=== PATIENT | female | born 1955 | race Caucasian/White ===

== ENCOUNTER → 2017-10-15 | Outpatient (CLI) | payer OTHER ==
--- NOTE | 2017-10-17 08:01 | MM ---
Reason for exam: screening (asymptomatic). Last mammogram was performed 1 year and 9 months ago. History: Patient is postmenopausal and has history of breast cancer at age 49. Family history of breast cancer in paternal grandmother at age 80. Implant in the left breast, 2007. Mastectomy of the left breast, November 27, 2006. Reduction of the right breast, 2006. Chemotherapy, 2006. Took antineoplastic for 5 years beginning at age 49. Physical Findings: A clinical breast exam by your physician is recommended on an annual basis and results should be correlated with mammographic findings. MG Screen Janina Unilateral W/Cad Bilateral CC and MLO view(s) were taken. Prior study comparison: January 27, 2016, right breast MG diagnostic mammo RT w CAD. January 25, 2015, right breast MG diagnostic mammo RT w CAD. There are scattered fibroglandular densities. No significant changes when compared with prior studies. ASSESSMENT: Negative, BI-RAD 1 RECOMMENDATION: Routine screening mammogram of the right breast in 1 year.
== END | disposition home or self-care (01) ==
LOC: RADMAMWWP 09:04
PROVIDERS: ATTEND Family Medicine
DX: Z12.31 Encounter for screening mammogram for malignant neoplasm of breast (principal)
CPT/HCPCS: 77067

== ENCOUNTER → 2018-11-14 | Outpatient (CLI) | payer OTHER ==
--- NOTE | 2018-11-18 14:17 | MM ---
Reason for exam: screening (asymptomatic). Last mammogram was performed 1 year and 1 month ago. History: Patient is postmenopausal and has history of breast cancer at age 49. Family history of breast cancer in paternal grandmother at age 80. Implant in the left breast, 2007. Mastectomy of the left breast, November 27, 2006. Reduction of the right breast, 2006. Chemotherapy, 2006. Took antineoplastic for 5 years beginning at age 49. Physical Findings: A clinical breast exam by your physician is recommended on an annual basis and results should be correlated with mammographic findings. MG Screen Janina Unilateral W/Cad Bilateral CC and MLO view(s) were taken. Prior study comparison: October 15, 2017, bilateral MG screen janina unilateral w/cad. January 27, 2016, right breast MG diagnostic mammo RT w CAD. The breast tissue is heterogeneously dense. This may lower the sensitivity of mammography. Benign appearing calcifictions in the right breast. ASSESSMENT: Benign, BI-RAD 2 RECOMMENDATION: Routine screening mammogram of the right breast in 1 year.
== END | disposition home or self-care (01) ==
LOC: RADMAMWWP 13:20
PROVIDERS: ATTEND Family Medicine
DX: Z12.31 Encounter for screening mammogram for malignant neoplasm of breast (principal)
CPT/HCPCS: 77067

== ENCOUNTER → 2020-08-10 | Outpatient (CLI) | payer OTHER ==
--- NOTE | 2020-08-12 11:13 | MM ---
Reason for exam: screening (asymptomatic). Last mammogram was performed 1 year and 9 months ago. History: Patient is postmenopausal and has history of breast cancer at age 49. Family history of breast cancer in paternal grandmother at age 80. Implant in the left breast, 2007. Mastectomy of the left breast, November 27, 2006. Reduction of the right breast, 2006. Chemotherapy, 2006. Took antineoplastic for 5 years beginning at age 49. Physical Findings: A clinical breast exam by your physician is recommended on an annual basis and results should be correlated with mammographic findings. MG Screen Janina Unilateral W/Cad CC and MLO view(s) were taken of the right breast. Prior study comparison: November 14, 2018, bilateral MG screen janina unilateral w/cad. October 15, 2017, bilateral MG screen janina unilateral w/cad. The breast tissue is heterogeneously dense. This may lower the sensitivity of mammography. Stable benign calcifications. There is no discrete abnormality. No significant changes when compared with prior studies. ASSESSMENT: Benign, BI-RAD 2 RECOMMENDATION: Routine screening mammogram of the right breast.
== END | disposition home or self-care (01) ==
LOC: RADMAMWWP 07:01
PROVIDERS: ATTEND Internal Medicine
DX: Z12.31 Encounter for screening mammogram for malignant neoplasm of breast (principal)
CPT/HCPCS: 77067

== ENCOUNTER 2024-05-21 14:28 | Emergency (ER) | payer MEDICARE, OTHER ==
--- NOTE | 2024-05-21 15:31 | ED ---
Upper Extremity HPI - General Chief Complaint: Extremity Injury, Upper Stated Complaint: Fall-L hand injury Time Seen by Provider: 05/21/24 14:40 Source: patient, RN notes reviewed Mode of arrival: ambulatory Limitations: no limitations - History of Present Illness Initial Comments: Is a 68-year-old female presenting to the emergency department for chief complaint of a fall. Patient states that approximately 12:00 she was helping her grandson off the bus when she was accidentally tripped and fell onto her outstretched left hand/wrist. Patient denies hitting her head or loss conscious the time of the injury. She denies other injuries at the time of the event. - Related Data Allergies Allergy/AdvReac Type Severity Reaction Status Date / Time No Known Allergies Allergy Verified 05/21/24 14:41 Review of Systems ROS Statement: Those systems with pertinent positive or pertinent negative responses have been documented in the HPI. ROS Other: All systems not noted in ROS Statement are negative. Past Medical History Past Medical History: Diabetes Mellitus, Hyperlipidemia, Hypertension, Thyroid Disorder Past Surgical History: Cholecystectomy, Joint Replacement, Orthopedic Surgery Additional Past Surgical History / Comment(s): mastectomy Smoking Status: Former smoker General Exam Limitations: no limitations General appearance: alert, in no apparent distress Eye exam: Present: normal appearance, PERRL, EOMI. Absent: scleral icterus, conjunctival injection, periorbital swelling Neck exam: Present: normal inspection. Absent: tenderness, meningismus, lymphadenopathy Respiratory exam: Present: normal lung sounds bilaterally. Absent: respiratory distress, wheezes, rales, rhonchi, stridor Cardiovascular Exam: Present: regular rate, normal rhythm, normal heart sounds. Absent: systolic murmur, diastolic murmur, rubs, gallop, clicks GI/Abdominal exam: Present: soft, normal bowel sounds. Absent: distended, tenderness, guarding, rebound, rigid Left Hand Wrist exam: Present: tenderness, swelling, ecchymosis. Absent: full ROM, deformity, crepitus Neuro motor exam: Absent: wrist extension intact, thumb opposition intact Vascular: Present: normal capillary refill, radial pulse (2+). Absent: vascular compromise Back exam: Present: normal inspection Neurological exam: Present: alert, oriented X3, CN II-XII intact Course Vital Signs 05/21/24 05/21/24 14:38 16:07 Temperature 98 F 98.1 F Pulse Rate 104 H 86 Respiratory 20 18 Rate Blood Pressure 190/109 137/88 O2 Sat by Pulse 99 99 Oximetry Procedures - Orthopedic Splinting/Casting Injury #1 Side: left Upper Extremity Injury Location: short arm Upper Extremity Immobilizer: Renzo wrap, synthetic pre-padded splint Medical Decision Making - Medical Decision Making Was pt. sent in by a medical professional or institution (, PA, MANAGER MOBILE, urgent care, hospital, or senior living...) When possible be specific @ -No Did you speak to anyone other than the patient for history (EMS, parent, family, police, friend...)? What history was obtained from this source @ -No Did you review nursing and triage notes (agree or disagree)? Why? @ -I reviewed and agree with nursing and triage notes Were old charts reviewed (outside hosp., previous admission, EMS record, old EKG, old radiological studies, urgent care reports/EKG's, senior living records)? Report findings @ -No old charts were reviewed Differential Diagnosis (chest pain, altered mental status, abdominal pain women, abdominal pain men, vaginal bleeding, weakness, fever, dyspnea, syncope, headache, dizziness, GI bleed, back pain, seizure, CVA, palpatations, mental health, musculoskeletal)? @ -Differential Musculoskeletal Muscular strain, contusion, ligament sprain, fracture, arthritis, septic arthritis, bursitis, cellulitis, muscle spasm, nerve compression, DVT, arterial occlusion, herpes zoster, electrolyte abnormality, tumor.... This is not meant to be in all inclusive list EKG interpreted by me (3pts min.). @ -none X-rays interpreted by me (1pt min.). @ -X-ray of the left wrist reveals a acute intra-articular fracture of the distal radius with intra-articular extension cortical depression CT interpreted by me (1pt min.). @ -None done U/S interpreted by me (1pt. min.). @ -None done What testing was considered but not performed or refused? (CT, X-rays, U/S, labs)? Why? @ -None What meds were considered but not given or refused? Why? @ -None Did you discuss the management of the patient with other professionals (professionals i.e. , SUE, MANAGER MOBILE, lab, RT, psych nurse, social welfare administrator, ice cream dispenser, teacher, learning officer, onsite case manager)? Give summary @ -No Was smoking cessation discussed for >3mins.? @ -No Was critical care preformed (if so, how long)? @ -No Were there social determinants of health that impacted care today? How? (Homelessness, low income, unemployed, alcoholism, drug addiction, transportation, low edu. Level, literacy, decrease access to med. care, group home, rehab)? @ -No Was there de-escalation of care discussed even if they declined (Discuss DNR or withdrawal of care, Hospice)? DNR status @ -No What co-morbidities impacted this encounter? (DM, HTN, Smoking, COPD, CAD, Cancer, CVA, ARF, Chemo, Hep., AIDS, mental health diagnosis, sleep apnea, morbid obesity)? @ -None Was patient admitted / discharged? Hospital course, mention meds given and route, prescriptions, significant lab abnormalities, going to OR and other pertinent info. @ -Discharge. This is a 68-year-old female with a left wrist injury. Patient is neuro vastly intact. Radial pulse 2+. Patient has full sensation of the wrist and hand. Exa remarkable for a fracture of the distal radius. Patient is placed in a short arm splint and instructed to follow-up with orthopedically impaired teacher. Continue Tylenol Motrin as needed addition to rest and ice. Discussed with Dr. Chowdhury Undiagnosed new problem with uncertain prognosis? @ -No Drug Therapy requiring intensive monitoring for toxicity (Heparin, Nitro, Insulin, Cardizem)? @ -No Were any procedures done? @ -orthopedic splinting Diagnosis/symptom? @ -radial fracture Acute, or Chronic, or Acute on Chronic? @ -acute Uncomplicated (without systemic symptoms) or Complicated (systemic symptoms)? @ -uncomplicated Side effects of treatment? @ -No Exacerbation, Progression, or Severe Exacerbation? @ -No Poses a threat to life or bodily function? How? (Chest pain, [place], [place], pneumonia, PE, COPD, DKA, ARF, appy, cholecystitis, CVA, Diverticulitis, Homicidal, Suicidal, threat to staff... and all critical care pts) @ -No Disposition Clinical Impression: Wrist fracture, Fall Disposition: HOME SELF-CARE Condition: Good Instructions (If sedation given, give patient instructions): Wrist Fracture in Adults (ED) Additional Instructions: Please return to the Emergency Department if symptoms worsen or any other concerns. Continue to rest, ice, elevate and keep splint in place until follow- up with orthopedically impaired teacher. Continue to take Tylenol and/or Motrin as needed. Is patient prescribed a controlled substance at d/c from ED?: No Referrals: Prabhjot Campos DO [Primary Care Provider] - 1-2 days Edinson Lala DO [Doctor of Osteopathic Medicine] - 1-2 days Time of Disposition: 15:53
--- NOTE | 2024-05-21 15:41 | XR ---
EXAMINATION TYPE: XR wrist complete LT DATE OF EXAM: 05/21/2024 3:06 PM COMPARISON: None CLINICAL INDICATION: Female, 68 years old with history of fall pain; [facility] TECHNIQUE: XR wrist complete LT; examined in the Frontal, navicular, lateral, and oblique. FINDINGS/IMPRESSION: Acute intra-articular fracture of the distal radius with intra-articular extension and cortical depre ssion of the intra-articular portion [facility], , 05/21/2024 3:38 PM
[2024-05-21 16:09] VITALS: BP 137/88; PULSE 86; RESP 18; TEMP 98.1
== END 2024-05-21 16:10 | disposition home or self-care (01) ==
LOC: EC 14:28
DX: S52.572A Other intraarticular fracture of lower end of left radius, initial encounter for closed fracture (principal); Z87.891 Personal history of nicotine dependence; W01.0XXA Fall on same level from slipping, tripping and stumbling without subsequent striking against object, initial encounter
CPT/HCPCS: 29125; 99283